=== PATIENT | male | born 1960 | race Caucasian/White ===

== ENCOUNTER 2016-11-18 21:39 | Emergency (ER) | payer MEDICAID, SELFPAY ==
[~2016-11-18] VITALS: Ht 175.3 cm; Wt 82.9 kg
[2016-11-18 21:39] VITALS: BP 113/61
== END 2016-11-18 22:44 | disposition home or self-care (01) ==
LOC: ED 22:38
DX: K04.7 Periapical abscess without sinus (principal)
CPT/HCPCS: 99283

== ENCOUNTER 2017-12-08 14:28 | Emergency (ER) | payer MEDICAID ==
[~2017-12-08] VITALS: Ht 175.3 cm; Wt 87.0 kg
[2017-12-08 14:29] VITALS: BP 120/74
[2017-12-08] MEDS ORDERED: HYDROcodone/APAP 5/325 TABLET PO ONE (16:00)
[2017-12-08] MEDS ORDERED: HYDROcodone/APAP 5/325 TABLET ONE (16:06)
== END 2017-12-08 16:26 | disposition home or self-care (01) ==
LOC: ED 16:22
DX: S63.521A Sprain of radiocarpal joint of right wrist, initial encounter (principal); F17.210 Nicotine dependence, cigarettes, uncomplicated; X50.1XXA Overexertion from prolonged static or awkward postures, initial encounter; Y93.89 Activity, other specified; Y92.69 Other specified industrial and construction area as the place of occurrence of the external cause; Y99.8 Other external cause status
CPT/HCPCS: 29260; 99284

== ENCOUNTER 2018-12-07 06:10 | Emergency (ER) | payer MEDICAID ==
[~2018-12-07] VITALS: Ht 175.3 cm; Wt 89.0 kg
[2018-12-07 06:17] VITALS: BP 99/48
--- NOTE | 2018-12-07 07:00 | NUR ---
REPORT TAKEN FROM BARBER FOWLER. PT RESTING ON [facility]. NADN. SAUERS. CALL LIGHT IN REACH.
== END 2018-12-07 08:18 | disposition home or self-care (01) ==
LOC: ED 06:57
DX: L03.113 Cellulitis of right upper limb (principal)
CPT/HCPCS: 29260; 99283